=== PATIENT | female | born 1930 | race Caucasian/White ===

== ENCOUNTER → 2018-02-25 | Outpatient (CLI) | payer MEDICARE, BC ==
[~2018-02-25] MED LIST: 00186-0372-20 IH; ALEVE 220MG220 MG PO; ASPIRIN E.C. 8181 MG PO; B-121000 MCG PO; BIOTIN2500 MCG PO; CALCIUM 600600 M1 PO; CALCIUM CARBON650 M2 PO; COREG 25MG25 MG/TAB PO; COREG25 MG PO; COZAAR100 MG PO; DIOVAN80 MG PO; HCTZ12.5TAB PO; ICAPS AREDS1 TAB PO; JANUVIA 100MG100 MG PO; M2 ZINC 5050 MG PO; MASON NATURAL1200 MG PO; MOBIC15 MG PO; NEURONTIN300 MG/CAP PO; PHARMASSURE ZIN50 MG PO; PRESERVISION1 SGL PO; PRILOSEC 20MG20 MG PO; SIMVASTATIN20 MG PO; VITAMIN B6500 MG PO; VITAMIN D NATU400 IU PO; VITAMIN D31000 I1 PO; ZEBETA10 MG PO
== END ==
LOC: MHCPAIN 08:52
DX: M54.16 Radiculopathy, lumbar region (principal)
CPT/HCPCS: J1040; Q9967

== ENCOUNTER → 2018-03-30 | Outpatient (CLI) | payer MEDICARE, BC | LOC: MHCPAIN 10:52 | DX: G89.29 Other chronic pain (principal); M47.817 Spondylosis without myelopathy or radiculopathy, lumbosacral region; M54.16 Radiculopathy, lumbar region; M53.3 Sacrococcygeal disorders, not elsewhere classified; M48.061 Spinal stenosis, lumbar region without neurogenic claudication | CPT/HCPCS: G0463 ==